=== PATIENT | female | born 1995 | race African-American/Black ===

== ENCOUNTER → 2018-07-18 15:11 | Outpatient (CLI) | payer OTHER, SELFPAY ==
--- NOTE | 2018-07-18 15:12 | US_ITS ---
US breast RT complete INDICATION: Palpable abnormality outer right breast ORDERING PHYSICIAN: Deshaun Melton MD PATIENT AGE: 23 years COMPARISON: None TECHNIQUE: Ultrasound right breast include axilla FINDINGS: Diffusely mixed echogenicity is present consistent with fibroglandular tissue. The palpable abnormality is not marked. It is reported to be in the outer aspect of the right breast. A bilobular cyst is present at 11:00 at 7 x 6 mm. This could actually represent 2 smaller cysts. No suspicious abnormalities are evident. Unremarkable right axilla IMPRESSION: Echodense fibroglandular tissue with a small bilobular cyst at 11:00 at 7 x 6 mm. Please correlate as to patient's area of palpable abnormality. Negative ultrasound does not screw the possibility of malignancy. Any palpable nodule that does not correspond to the abnormality mentioned above should be managed on a clinical basis BI-RADS Category: 2 Benign Finding(s) Follow-up recommended as clinically warranted (A letter has been sent to the patient regarding results of the study.)
== END ==
PROVIDERS: PCP Nurse Practitioner Obstetrics & Gynecology; Visit Provider Nurse Practitioner Obstetrics & Gynecology
DX: N63.10 Unspecified lump in the right breast, unspecified quadrant (principal)
CPT/HCPCS: 76641